=== PATIENT | female | born 1955 | race Caucasian/White ===

== ENCOUNTER → 2017-04-16 | Outpatient (CLI) | payer BC, OTHER ==
[~2017-04-16] MED LIST: CALTTAB11 PO; GLUC15002 PO; VITA100067 PO
--- NOTE | 2017-04-16 15:40 | REPMRS ---
Patient History The patient states she had a clinical breast exam in 04/11 Patient is postmenopausal and has history of high-risk lesion on a previous biopsy at age 54. Family history of prostate cancer in brother at age 50 or over. High risk localization of breast nodule of the right breast, February 03, 2010. Took tamoxifen for 2 years. Digital Woman Screen Mammo: April 16, 2017 - Exam #: [id number] Bilateral CC and MLO view(s) were taken. Technologist: Anni Hu, Technologist Prior study comparison: March 04, 2016, bilateral digital mammo screening bilat, performed at [facility]. February 19, 2015, bilateral digital mammo screening bilat, performed at [facility]. FINDINGS: The breast tissue is heterogeneously dense. This may lower the sensitivity of mammography. There has been no change in the appearance of the mammogram from the prior studies. There is a moderate amount of residual fibroglandular tissue which is fairly symmetric. There is no interval development of dominant mass, areas of architectural distortion, or clustered microcalcification typical of malignancy. ASSESSMENT: BI-RADS/ACR category 1 mammogram. Negative. Recommendation Routine screening mammogram in 1 year (for women over age 40). This mammogram was interpreted with the aid of an FDA-approved computer-aided dectection system. Electronically Signed By: Carlos Kenny MD 04/16/17 [id number]
== END ==
LOC: M WHC 14:06
PROVIDERS: ATTEND Nurse Practitioner Women's Health
DX: Z12.31 Encounter for screening mammogram for malignant neoplasm of breast (principal); Z78.0 Asymptomatic menopausal state

== ENCOUNTER → 2023-07-22 | Outpatient (CLI) | payer MEDICARE, OTHER ==
[~2023-07-22] MED LIST changes: +ISOVUE-370 76% 100ML VIAL As Ordered ONE
== END ==
LOC: M RAD 07:17
PROVIDERS: ATTEND Otolaryngology
DX: J35.8 Other chronic diseases of tonsils and adenoids (principal); E07.9 Disorder of thyroid, unspecified
CPT/HCPCS: 70491; Q9967